=== PATIENT | female | born 1935 | race Caucasian/White ===

== ENCOUNTER 2017-01-29 14:20 | Emergency (ER) | payer OTHER, MEDICARE ==
[2017-01-29 14:28] VITALS: TEMP 98.4; BMI 29.9
--- NOTE | 2017-01-29 14:30 | PDOC ---
Rapid Medical Evaluation Chief Complaint: Redness To Affected Area Medical Evaluation: Allergies Allergy/AdvReac Type Severity Reaction Status Date / Time No Known Allergies Allergy Verified 01/29/17 14:24 Vital Signs Temp Pulse Resp BP Pulse Ox 98.4 F 80 18 153/68 100 01/29/17 14:24 01/29/17 14:24 01/29/17 14:24 01/29/17 14:24 01/29/17 14:24 01/29/17 14:29 I have performed a bried in-person evaluation of this patient. The Patient presents with a cheif complaint of pain and redness to left wrist and hand patient forgetful and unsure how injury occurred Pertinent physical exam findings are: NAD Unlabored breathing Left wrist with redness, swelling and pain of right hand and wrist with ROM cap refill in left hand wnl, sensation intact I have ordered the following: analgesia, xray of left hand and wrist The patient will proceed to the ED for further evaluation. 01/29/17 14:56
[2017-01-29] MEDS ORDERED: ACETAMINOPHEN 325 MG TABLET (FP) PO ONE (14:31)
[2017-01-29] MEDS ORDERED: ACETAMINOPHEN 325 MG TABLET (FP) ONE (15:14)
--- NOTE | 2017-01-29 16:49 | PDOC ---
History of Present Illness <Kaur Clark - Last Filed: 01/29/17 16:54> - History of Present Illness Initial Comments: 01/29/17 16:56 The patient is an 81 year old female, with a significant past medical history of dementia, HTN who was brought to the ED with her partner for left forearm swelling and redness. Patient has memory issues and therefore is a poor historian. Patients partner believes that she may have injured her left wrist at some point within the past couple of days and the pain has worsened. Patient is unable to recall falling. Patient states she is unable to move her left arm/ wrist without pain. Pain radiates to elbow according to patient. She is unable to make a fist with her left hand when prompted. Patients partner gave her 2 oxycodone but it did not relieve the pain, it only helped to put her to sleep. Her daughter is a physician and may be contacted for further information regarding her mothers past medical history. (Joann Trejo [phone]) She denies recent fevers, chills, headache or dizziness. She denies recent nausea, vomit, diarrhea or constipation. She denies recent dysuria, frequency, urgency or hematuria. She denies recent chest pain or shortness of breath. Allergies: NKA FMHx: dementia Primary Care Physician: not on staff. <Huong Harmon - Last Filed: 01/29/17 16:57> - General Chief Complaint: Redness To Affected Area Stated Complaint: INJURY Time Seen by Provider: 01/29/17 14:58 Past History - Past Medical History COPD: No Dementia: Yes Hypercholesterolemia: Yes - Suicide/Smoking/Psychosocial Hx Smoking History: Never smoked Have you smoked in the past 12 months: No Information on smoking cessation initiated: No Hx Alcohol Use: No Drug/Substance Use Hx: No Substance Use Type: None <Kaur Clark - Last Filed: 01/29/17 16:54> <Huong Harmon - Last Filed: 01/29/17 16:57> - Past Medical History Allergies/Adverse Reactions: Allergies Allergy/AdvReac Type Severity Reaction Status Date / Time No Known Allergies Allergy Verified 01/29/17 14:24 Review of Systems - Review of Systems Comments:: 01/29/17 16:56 GENERAL/CONSTITUTIONAL: No fever or chills. No weakness. HEAD, EYES, EARS, NOSE AND THROAT: No change in vision. No ear pain or discharge. No sore throat. GASTROINTESTINAL: No nausea, vomiting, diarrhea or constipation. GENITOURINARY: No dysuria, frequency, or change in urination. CARDIOVASCULAR: No chest pain or shortness of breath. RESPIRATORY: No cough, wheezing, or hemoptysis. MUSCULOSKELETAL: No joint or muscle swelling or pain. No neck or back pain. SKIN: + left arm redness and warmth. +left forearm pain. NEUROLOGIC: No headache, vertigo, loss of consciousness, or change in strength/ sensation. ENDOCRINE: No increased thirst. No abnormal weight change. HEMATOLOGIC/LYMPHATIC: No anemia, easy bleeding, or history of blood clots. ALLERGIC/IMMUNOLOGIC: No hives or skin allergy. <Huong Harmon - Last Filed: 01/29/17 16:57> *Physical Exam - Vital Signs Last Vital Signs Temp Pulse Resp BP Pulse Ox 98.4 F 80 18 153/68 100 01/29/17 14:24 01/29/17 14:24 01/29/17 14:24 01/29/17 14:24 01/29/17 14:24 <Kaur Clark - Last Filed: 01/29/17 16:54> - Vital Signs Last Vital Signs Temp Pulse Resp BP Pulse Ox 98.4 F 80 18 153/68 100 01/29/17 14:24 01/29/17 14:24 01/29/17 14:24 01/29/17 14:24 01/29/17 14:24 <Huong Harmon - Last Filed: 01/29/17 16:57> ED Treatment Course - Medications Given in the ED: ED Medications Discontinued Medications Generic Name Dose Route Start Last Admin Trade Name Freq PRN Reason Stop Dose Admin Acetaminophen 650 mg 01/29/17 14:31 01/29/17 15:17 Tylenol - PO 01/29/17 14:32 650 mg ONCE ONE Administration <Kaur Clark - Last Filed: 01/29/17 16:54> - Medications Given in the ED: ED Medications Discontinued Medications Generic Name Dose Route Start Last Admin Trade Name Freq PRN Reason Stop Dose Admin Acetaminophen 650 mg 01/29/17 14:31 01/29/17 15:17 Tylenol - PO 01/29/17 14:32 650 mg ONCE ONE Administration <Huong Harmon - Last Filed: 01/29/17 16:57> *DC/Admit/Observation/Transfer - Discharge Dispostion Admit: No <Kaur Clark - Last Filed: 01/29/17 16:54> - Attestations Scribe Attestion: 01/29/17 16:57 Documentation prepared by Huong Harmon, acting as [employer] forces medical sergeant for Kaur Clark MD. <Huong Harmon - Last Filed: 01/29/17 16:57> Diagnosis at time of Disposition: Cellulitis Qualifiers: Site of cellulitis: extremity Site of cellulitis of extremity: upper extremity Laterality: left Qualified Code(s): L03.114 - Cellulitis of left upper limb - Discharge Dispostion Disposition: HOME Condition at time of disposition: Stable - Referrals Referrals: STAFF,NOT ON [Primary Care Provider] - - Patient Instructions - Post Discharge Activity
[2017-01-29 17:56] VITALS: BP 142/65; PULSE 70
== END 2017-01-29 17:57 | disposition home or self-care (01) ==
LOC: JER 14:20
DX: L03.114 Cellulitis of left upper limb (principal); I10 Essential (primary) hypertension; F03.90 Unspecified dementia, unspecified severity, without behavioral disturbance, psychotic disturbance, mood disturbance, and anxiety
CPT/HCPCS: 73110-TC-LT; 73130-TC-LT; 99283-25